=== PATIENT | male | born 1990 | race Caucasian/White ===

== ENCOUNTER 2019-01-01 14:52 | Emergency (ER) | payer OTHER ==
[2019-01-01] MEDS: LORAZEPAM 0.5 MG TAB PO (15:15)
== END 2019-01-01 15:45 | disposition home or self-care (01) ==
LOC: E/R 14:52
DX: F41.9 Anxiety disorder, unspecified (principal); F99 Mental disorder, not otherwise specified; Z91.14 Patient's other noncompliance with medication regimen
CPT/HCPCS: 99283; Z7502